=== PATIENT | male | born 1990 | race African-American/Black ===

== ENCOUNTER 2018-10-03 06:48 | Emergency (ER) | payer MEDICAID ==
[~2018-10-03] VITALS: Ht 172.7 cm; Wt 93.0 kg
[2018-10-03] MEDS ORDERED: ACETAMINOPHEN 325MG TABLET PO ONE (07:30)
[2018-10-03 09:16] VITALS: BP 122/73
== END 2018-10-03 09:18 | disposition home or self-care (01) ==
LOC: ER 06:48
DX: S00.83XA Contusion of other part of head, initial encounter (principal); F07.81 Postconcussional syndrome; F12.10 Cannabis abuse, uncomplicated; J45.909 Unspecified asthma, uncomplicated; Y08.89XA Assault by other specified means, initial encounter; Y93.89 Activity, other specified; Y92.89 Other specified places as the place of occurrence of the external cause; Y99.8 Other external cause status
CPT/HCPCS: 70486; 99284

== ENCOUNTER 2020-04-21 10:21 | Emergency (ER) | payer MEDICAID ==
[~2020-04-21] VITALS: Ht 172.7 cm; Wt 97.5 kg
[2020-04-21 10:29] VITALS: BP 121/82
[2020-04-21] MEDS ORDERED: CEFTRIAXONE 1 G PREMIX 50 ML IV ONE (11:15)
[2020-04-21] MEDS ORDERED: IBUPROFEN 600MG TABLET PO ONE (11:15)
[2020-04-21] MEDS ORDERED: AMPICILLIN SOD/SULBACTAM NA 3 G in SODIUM CHLORIDE 0.9% 100 ML IV STA (11:27)
[2020-04-21] MEDS ORDERED: SODIUM CHLORIDE 0.9% 1,000 ML IV ONE (11:30)
[2020-04-21 12:37] LABS: BASOPHILS % 0.6 % (0.0-2.0); EOSINOPHILS % 2.2 % (0.0-5.0); HEMATOCRIT. 41.9 % (42.0-52.0); LYMPHOCYTES % 33.6 % (20.0-50.0); MEAN CORPUSCULAR HEMOGLOBIN 29.8 pg (28.0-32.0); MEAN CORPUSCULAR VOLUME 88.9 fL (80.0-94.0); MEAN PLATELET VOLUME 7.9 fl (7.4-10.4); MONOCYTES % 5.5 % (2.0-8.0); NEUTROPHILS % 58.1 % (40.0-76.0); PLATELET 262 x1000/uL (130-400); RED BLOOD CELL COUNT 4.71 mill/uL (4.7-6.1); RED CELL DISTRIBUTION WIDTH 13.3 % (11.6-14.6)
[2020-04-21 12:45] LABS: CHLORIDE 109 mEq/L (98-107)
[2020-04-21] MEDS ORDERED: IOHEXOL-300 100 ML BOTTLE ONE (15:16)
== END 2020-04-21 15:15 | disposition home or self-care (01) ==
LOC: ER 10:21
DX: K04.7 Periapical abscess without sinus (principal); H00.036 Abscess of eyelid left eye, unspecified eyelid; F12.10 Cannabis abuse, uncomplicated
CPT/HCPCS: 36415; 70487; 73564; 80048; 85025; 96361; 96365; 99285; J0295; J7030; J7050; Q9967; Z7610; J0696

== ENCOUNTER 2020-04-27 04:20 | Emergency (ER) | payer MEDICAID ==
[~2020-04-27] VITALS: Ht 172.7 cm; Wt 97.0 kg
[2020-04-27 04:24] VITALS: BP 120/82
== END 2020-04-27 06:32 | disposition left against medical advice (07) ==
LOC: ER 04:20
DX: L29.9 Pruritus, unspecified (principal); Z53.21 Procedure and treatment not carried out due to patient leaving prior to being seen by health care provider

== ENCOUNTER 2020-06-13 09:16 | Emergency (ER) | payer MEDICAID ==
[~2020-06-13] VITALS: Ht 172.7 cm; Wt 97.0 kg
[2020-06-13] MEDS ORDERED: KETOROLAC 30MG/ML VIAL IM ONE (09:45)
[2020-06-13] MEDS ORDERED: IBUPROFEN 600MG TABLET PO ONE (11:00)
[2020-06-13 11:08] VITALS: BP 123/86
== END 2020-06-13 11:09 | disposition home or self-care (01) ==
LOC: ER 09:16
DX: M79.671 Pain in right foot (principal); F12.10 Cannabis abuse, uncomplicated; J45.909 Unspecified asthma, uncomplicated; Z98.890 Other specified postprocedural states
CPT/HCPCS: 73630; 99283; J1885

== ENCOUNTER 2020-09-07 06:50 | Emergency (ER) | payer MEDICAID ==
[~2020-09-07] VITALS: Ht 172.7 cm; Wt 101.2 kg
[2020-09-07 06:52] VITALS: BP 118/73
[2020-09-07] MEDS ORDERED: CLIN300C12 MT (07:11)
== END 2020-09-07 07:25 | disposition home or self-care (01) ==
LOC: ER 06:50
DX: H04.302 Unspecified dacryocystitis of left lacrimal passage (principal); J45.909 Unspecified asthma, uncomplicated; F12.10 Cannabis abuse, uncomplicated
CPT/HCPCS: 99282

== ENCOUNTER 2022-05-19 09:21 | Emergency (ER) | payer MEDICAID, OTHER ==
[~2022-05-19] VITALS: Ht 165.1 cm; Wt 100.0 kg
[~2022-05-19 09:21] MED LIST: CLIN-194 MT
[2022-05-19] MEDS ORDERED: IBUPROFEN 600MG TABLET PO ONE (10:45)
[2022-05-19 11:25] VITALS: BP 122/78
[2022-05-19] MEDS ORDERED: AMOX-494 MT (11:41)
== END 2022-05-19 11:58 | disposition home or self-care (01) ==
LOC: ER 09:21
DX: S93.492A Sprain of other ligament of left ankle, initial encounter (principal); S80.12XA Contusion of left lower leg, initial encounter; R68.84 Jaw pain; K04.7 Periapical abscess without sinus; W18.2XXA Fall in (into) shower or empty bathtub, initial encounter; Y93.E1 Activity, personal bathing and showering; Y92.012 Bathroom of single-family (private) house as the place of occurrence of the external cause
CPT/HCPCS: 73590; 73610; 73630; 99284

== ENCOUNTER 2022-07-27 16:08 | Emergency (ER) | payer MEDICAID, OTHER ==
[~2022-07-27] VITALS: Ht 172.7 cm; Wt 98.0 kg
[~2022-07-27 16:08] MED LIST changes: +AMOX-494 MT
[2022-07-27 16:34] VITALS: BP 132/92
[2022-07-27] MEDS ORDERED: T3 PO (18:56)
[2022-07-27] MEDS ORDERED: IBUP-2029 MT (18:56)
[2022-07-27] MEDS ORDERED: AMOX-494 MT (18:56)
== END 2022-07-27 22:18 | disposition home or self-care (01) ==
LOC: ER 16:08
DX: K08.89 Other specified disorders of teeth and supporting structures (principal); J45.909 Unspecified asthma, uncomplicated; Z98.890 Other specified postprocedural states
CPT/HCPCS: 99283